=== PATIENT | female | born 1975 | race Caucasian/White ===

== ENCOUNTER 2021-12-26 00:07 | Day surgery (SDC) | payer BC, SELFPAY ==
--- NOTE | 2021-12-20 15:44 | PC.NURSE ---
PLEASE GIVE THIS INSTRUCTION FORM TO PATIENT WHEN PRESENTING FOR PREOP TESTING!!!!!!!!!!!!!!!! Report to the Outpatient Waiting Room, entrance under the green pavilion located off [facility], at time _0600_ on date _12/26/21 . OR Time: __0730 . IF YOUR SURGERY TIME IS ADJUSTED FOR ANY REASON, YOU WILL BE NOTIFIED ON Sunday12/23/21 AFTERNOON - You and your visitor will be asked a series of questions to screen for COVID 19 for your protection. - A mask is required within the hospital. Preoperative COVID Testing Requirements: No COVID Test needed if: (proof is required; if not received patient will have Rapid Test prior to entry) YOU DO NOT REQUIRE COVID TESTING - Patient has received COVID Vaccine at least 14 days prior to procedure date or - Patient has positive COVID test result within last 90 days of surgery date. COVID Test needed if above criteria is not met If not COVID vaccinated a COVID test must be conducted within 72 hours of surgery and patient is asked to isolate self from time of testing until procedure. You will go to the [facility] for your COVID testing. The [facility] site is located at the corner of [address] [facility]. You will only be called if COVID results are positive and your surgeon may reschedule your elective surgery date. Patients may have clear liquids (water, carbonated beverages, clear teas, apple juice) until 3 hours prior to surgery with a maximum of 20 ounces. STOP CLEAR LIQUIDS AT 0430 ON THE MORNING OF SURGERY - No food from midnight until time of surgery - Infants may have breast milk until 4 hours before surgery, formula 6 hours prior to surgery. - Children will be allowed to drink immediately following surgery. If applicable, please bring a bottle or sippy cup to assist with drinking. Juice, water, soda, and popsicles are readily available. For infants on formula, please bring formula the day of surgery. Pacifiers are allowed. Take the following medications with a SIP of water the morning of surgery: __NONE Medications to discontinue per physician N/A Date to take last dose Please no make-up, nail samoan, hairspray, perfume, deodorant, or body powder the day of surgery. No jewelry (including any body piercings) or valuables the day of surgery, leave them at home. Please take a shower or bath the night before, or the morning of, surgery with an antibacterial soap. Wear comfortable, loose fitting clothing. Children are encouraged to wear pajamas. - Jewelry must be removed prior to entering the operating room. Rings and piercings that are not removed may be cut off. - The hospital will not accept responsibility for valuables. - Please leave all valuables, including medications, at home the day of surgery. If you are going home after surgery, a licensed local company hazmat driver must drive you home. - NO public transportation without another adult. - We recommend that an adult stay with you for 24 hours following discharge. - We also recommend that you do not drive, make important decision, drink alcoholic beverages, or take any drugs that were not prescribed by your health care provider for at least 24 hours after your discharge time. For Pediatric surgeries, we recommend two adults accompany the child home (only one inside the building at this time). One visitor will be allowed to accompany the patient into the hospital. Patients visitor will be instructed to remain with patient at all times or leave the building. We will allow the visitor to come back to the postoperative area when patient is ready. Follow any additional instructions given to you from your surgeon. Telephone instructions given to __YONIS and asked if any additional questions and then verbalized understanding. Patient advised to call surgeon office or pre surgery nurse liaison [phone] if
--- NOTE | 2021-12-23 16:12 | WPDANESEPPF ---
Anes - Initial Pre Proc Eval Procedure: Operation Date: 12/26/21 07:30 Proposed Procedures p Bilateral Laparoscopic Tubal Ligation with Fallopian Rings - Shea Calvillo MD Date/Time: 12/23/21 16:12 Surgeon: Shea Calvillo MD Pre Op Diagnosis: desires sterilization Patient Data Age: 46 Gender: F Height: 1.66 m Weight: 66 kg Allergies Allergy/AdvReac Type Severity Reaction Status Date / Time No Known Allergies Allergy Verified 12/26/21 06:17 Home Medications Medication Instructions Recorded Confirmed Type docusate sodium [Colace] 50 mg PO DAILY 12/20/21 12/26/21 History ergocalciferol (vitamin D2) 50,000 unit PO WEEKLY 12/20/21 12/26/21 History [Calciferol] iron,carbonyl-vitamin C [Vitron-C] 1 tablet PO DAILY 12/20/21 12/26/21 History lifitegrast [Xiidra] 1 drp EACH EYE BID 12/20/21 12/26/21 History psyllium husk-calcium [Metamucil 3 cap PO DAILY 12/20/21 12/26/21 History Plus Calcium] valacyclovir 1,000 mg PO PRN PRN 12/20/21 12/26/21 History Patient hx anesthesia problems: none Family hx anesthesia problems: none Results Review: All pre-operative results and documents have been reviewed as part of the pre-operative evaluation. [facility] Social History Social History Alcohol intake: never Substance use: never Substance use type: does not use Living arrangements: with family Spiritual care concerns: No Anes - Eval Final PreProcedure Day of Procedure 12/23/21 16:12 Patient weight: normal Heart: regular rate and rhythm Lungs: clear to auscultation and normal air movement Airway: Mallampati scale class II Neurological: alert and oriented Last oral intake: >/= 8 hours ASA classification: I Emergent: no Anesthetic plan: proceed Anesthesia type and monitoring: general ETT and standard monitoring Results Review: All pre-operative results and documents have been reviewed as part of the pre-operative evaluation. Informed Consent: The patient's anesthetic plan and its attendant risks and benefits were discussed with the patient/family/POA. Questions were solicited and answers provided to the satisfaction of the patient/family/POA.
[2021-12-26] VITALS (11 sets, daily range): BP systolic 108–123; BP diastolic 62–81; PULSE 45–69; RESP 10–20; TEMP 36.3–36.7; O2SAT 95–100
[2021-12-26] MEDS: LACTATED RINGERS 1,000 ML 30 ML IV CONT ×2 (06:30→08:28)
[2021-12-26] MEDS: ACETAMINOPHEN 500 MG TABLET 1000 MG PO (06:34)
[2021-12-26] MEDS: KETOROLAC 15 MG/ML VIAL (*BKC) IV PUSH (06:34)
--- NOTE | 2021-12-26 07:37 | WPDHPUPDATE1 ---
History and Physical Update Update Date/Time: 12/26/21 07:37 History and Physical has been reviewed, including an updated exam of the patient. There are NO changes in the patient's condition. Risks, benefits, and alternatives have been discussed and questions answered. Patient agrees to proceed with procedure.
--- NOTE | 2021-12-26 07:37 | PM.HPGS ---
History of Present Illness History of Present Illness Consent: Risks, benefits, and alternatives have been discussed and questions answered. Patient agrees to proceed with procedure. Chief complaint: desires sterilization Narrative: Viv Ewing is a 46 year old female who has completed her childbearing and requests permanent sterilization. Plan is to proceed with laparoscopic bilateral tubal ligation with Falope rings. Risks of infection, bleeding, injury to internal organs, and failure are reviewed. Patient voices understanding and agrees to proceed. Review of Systems Review of Systems: not repeated day of surgery; patient states no changes in status PMFSH Past Medical History Medical History (Updated 12/26/21 @ 07:40 by Shea Calvillo MD) (normal spontaneous vaginal delivery) X3 Surgical History Surgical History (Updated 12/26/21 @ 07:39 by Shea Calvillo MD) History of carpal tunnel release Hx laparoscopic cholecystectomy Hx of abdominoplasty Social History Social History Alcohol intake: never Substance use: never Substance use type: does not use Living arrangements: with family Spiritual care concerns: No Meds Home Medications and Allergies Home Medications Medication Instructions Recorded Confirmed Type docusate sodium [Colace] 50 mg PO DAILY 12/20/21 12/26/21 History ergocalciferol (vitamin D2) 50,000 unit PO WEEKLY 12/20/21 12/26/21 History [Calciferol] iron,carbonyl-vitamin C [Vitron-C] 1 tablet PO DAILY 12/20/21 12/26/21 History lifitegrast [Xiidra] 1 drp EACH EYE BID 12/20/21 12/26/21 History psyllium husk-calcium [Metamucil 3 cap PO DAILY 12/20/21 12/26/21 History Plus Calcium] valacyclovir 1,000 mg PO PRN PRN 12/20/21 12/26/21 History Allergies Allergy/AdvReac Type Severity Reaction Status Date / Time No Known Allergies Allergy Verified 12/26/21 06:17 Vital Signs Vital Signs - 24 hr 12/26/21 06:05 Temperature 98.1 F Pulse Rate 69 Respiratory Rate 18 Blood Pressure 122/69 Pulse Oximetry 100 Exam Const: General: healthy appearing and alert Orientation/consciousness: patient oriented x3 Resp: Effort & Inspection: normal respiratory effort GI: GI Palp: Yes Soft to palpation, No Tenderness to palpation present (GI) and No Palpable mass present : External Female Exam: normal external appearance Speculum Exam - Vagina: normal appearance of the vagina and normal vaginal discharge Speculum Exam - Cervix: normal appearance of the cervix Bimanual exam- vagina & uterus: uterine size normal and consistency normal Bimanual Exam- Adnexa, other: normal adnexae and No adnexal tenderness Neuro: General: patient oriented x3 Assessment and Plan Assessment and plan (1) Encounter for sterilization: Code(s): Z30.2 - Encounter for sterilization Status: Acute Assessment and Plan: Plan to proceed with laparoscopic bilateral tubal ligation with Falope rings
[2021-12-26] MEDS: ceFAZolin 2 GM/D5W 50 ML 2 GM/50 ML BAG IVPB (07:48)
--- NOTE | 2021-12-26 08:28 | P.OP_ITS ---
Procedure Note - Detailed Date of Procedure 12/26/21 Pre-op Diagnosis desires sterilization Post-op Diagnosis Same Procedure Performed Laparoscopic bilateral tubal ligation with Falope ring Surgeon Shea Calvillo MD Anesthesia General Findings Normal-appearing tubes, ovaries, and uterus. Description of Procedure The patient is taken to the operating room and placed under anesthesia in the dorsal lithotomy position. She was prepped and draped in usual sterile fashion. Bladder was drained with a red rubber catheter. [place] speculum was placed in the vagina and the cervix grasped on the anterior lip with a tenaculum. The acorn manipulator is placed. Vaginal speculum was removed. Attention was turned to the abdomen where a vertical skin incision was made below the cosmetically made umbilicus. The abdomen is tented and entered with Veress need le. Water drop test is normal. Opening patient pressure is 9mmHg. Pneumoperitoneum was obtained patient pressure of 15mmHg. The Veress needle was then removed and the abdomen tented with towel clamps and the 5mm Optiview trocar placed. Intra-abdominal placement was confirmed with the laparoscope. The patient is placed in Trendelenburg. An 8mm skin incision was made 2cm above the symphysis pubis. The 8mm trocars placed under direct visualization. The blunt probe was used to bring the tubes into view. The left tube was grasped with the applicator and a ring was applied. The identical procedure was performed on the opposite side. Picture documentation was taken. Instruments are removed and the pneumoperitoneum reduced. Skin incisions were closed using 4-0 nylon in an interrupted fashion. Vaginal instruments are removed. The patient is awakened from anesthesia and taken to the recovery room in stable condition. Sponge, needle, and instrument counts are correct per the OR staff. Estimated Blood Loss 5 Drains No Packing No Pathology None sent Complications No immediate complications Condition Stable Disposition PACU
[2021-12-26] MEDS: fentaNYL CITRATE INJ (*CRX) 100 MCG/2 ML VIAL 25 MCG IV PUSH ×8 (08:38→10:54)
[2021-12-26] MEDS: ONDANSETRON INJ 4 MG/2 ML VIAL IV PUSH (08:42)
[2021-12-26] MEDS: diphenhydrAMINE HCl INJ 50 MG/ML VIAL 12.5 MG IV PUSH ×2 (09:13→09:56)
[2021-12-26] MEDS: oxyCODONE HCL (*CRX) 5 MG TAB IR PO (09:55)
== END 2021-12-26 11:21 | disposition home or self-care (01) ==
PROVIDERS: Anesthesiology; Visit Provider Obstetrics & Gynecology Gynecology
PROC: (CPT 58671; principal; 2021-12-26 07:30)
DX: Z30.2 Encounter for sterilization (principal)
CPT/HCPCS: 58671; 36415; 85014; 85018; A4264; A9270; J0690; J1200; J1885; J2250; J2405; J2704; J2710; J3010; J7120

== ENCOUNTER 2022-11-23 01:11 | Day surgery (SDC) | payer BC, SELFPAY ==
[2022-11-16 09:22] VITALS: BMI 23.6
--- NOTE | 2022-11-16 09:33 | PC.NURSE ---
Report to the Outpatient Waiting Room, entrance under the green pavilion located off [facility], at time 6:00 on date 11/23/22. Planned Procedure Time: 7:30. Time changes happen often and if your time is changed the preop area will call you the afternoon before. - You and your visitor will be asked to self-screen and do not enter if you have any COVID symptoms. - Only one visitor is requested with a max of two and NO children visitors are allowed at this time. - The patient visitor may be requested to leave or wait in car when not with patient due to distancing restrictions. - A mask is optional within the hospital at this time. Patients may have clear liquids (water, carbonated beverages, clear teas, apple juice) until 3 hours prior to surgery (4:30) with a maximum of 20 ounces. - No food from midnight until time of surgery Take the following medications with a SIP of water the morning of surgery: VALACYCLOVIR IF NEEDED DO NOT STOP ANY OF YOUR OTHER PRESCRIPTION MEDICATIONS PRIOR TO SURGERY EXCEPT THE FOLLOWING Medications to discontinue per physician: VITAMINS/SUPPLEMENTS Date to take last dose: 11/19/22. Please no make-up, nail maltese, hairspray, perfume, deodorant, or body powder the day of surgery. No jewelry (including any body piercings) or valuables the day of surgery, leave them at home. Please take a shower or bath the night before, or the morning of, surgery with an antibacterial soap. Wear comfortable, loose fitting clothing. - Jewelry must be removed prior to entering the operating room. Rings and piercings that are not removed may be cut off. - The hospital will not accept responsibility for valuables. - Please leave all valuables, including medications, at home the day of surgery. If you are going home after surgery, a licensed armored car driver must drive you home. - NO public transportation without another adult if you receive anesthesia. - We recommend that an adult stay with you for 24 hours following discharge. - We also recommend that you do not drive, make important decision, drink alcoholic beverages, or take any drugs that were not prescribed by your health care provider for at least 24 hours after your discharge time. Follow any additional instructions given to you from your surgeon. If you or anyone in your household have experienced Covid symptoms in the past week, please notify your surgeon or the nurse liaison at the phone number below for possible testing. Telephone instructions given to ASHLEE MARTI and asked if any additional questions and then verbalized understanding. Patient advised to call surgeon office or pre surgery nurse liaison [phone] if any additional questions.
--- NOTE | 2022-11-22 12:35 | PM.IMHP ---
H&P: HPI History of Present Illness Date/Time: 11/22/22 12:35 Chief Complaint: Right hallux valgus and toe deformity with pain. Narrative: 47-year-old woman with right toe deformity, forefoot pain and difficulty with shoe wear. Failed conservative treatment with accommodative shoes, custom inserts, activity modification. Presents for operative treatment. Review of Systems Constitutional: Constitutional: Denies fever(s) Eyes: Eyes: Denies blurry vision ENT: Reports Normal hearing present Cardiovascular: Cardiovascular: Denies chest pain and Denies dyspnea Respiratory: Respiratory: Denies dyspnea and Denies wheezing Gastrointestinal: Gastrointestinal: Denies abdominal pain Genitourinary: Genitourinary: Denies urinary urgency Musculoskeletal: Musculoskeletal: Reports as per HPI and Denies numbness Integumentary/Breasts: Skin/Breast: Denies changing lesions and Denies sores Neurologic: Reports Normal hearing present, Denies behavioral changes, Denies confusion, Denies numbness and Denies convulsions Psychiatric: Psychiatric: Denies behavioral changes, Denies confusion and Denies hallucinations Endocrine: Endocrine: Denies heat intolerance Hematologic/Lymphatic: Hematologic/Lymphatic: Denies easy bleeding Allergic/Immunologic: Allergic/Immunologic: Denies wheezing PMFSH Past Medical History Medical History Acquired hallux valgus of left foot Bilateral foot pain Hallux valgus (acquired), right foot Hammertoe of second toe of right foot 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 (normal spontaneous vaginal delivery) X3 Surgical History Surgical History History of carpal tunnel release Hx laparoscopic cholecystectomy Hx of abdominoplasty Social History Social History Smoking status: Never smoker Alcohol intake: current Alcohol use details: VERY RARE Substance use: never Substance use type: does not use Living arrangements: with family Additional living arrangements comments: CHILDREN Spiritual care concerns: No Meds Home Medications and Allergies Home Medications Medication Instructions Recorded Confirmed Type docusate sodium 50 mg capsule 50 mg PO DAILY 12/20/21 11/16/22 History ergocalciferol (vitamin D2) 50,000 50,000 unit PO WEEKLY 12/20/21 11/16/22 History unit tablet iron,carbonyl 65 mg-vitamin C 125 1 tablet PO DAILY 12/20/21 11/16/22 History mg tablet,delayed release (Vitron-C) lifitegrast 5 % eye drops in a 1 drp EACH EYE BID PRN Dry Eyes 12/20/21 11/16/22 History dropperette (Xiidra) psyllium husk-calcium 1 gram-60 mg 3 cap PO DAILY 12/20/21 11/16/22 History capsule (Metamucil Plus Calcium) valacyclovir 1 gram tablet 1,000 mg PO PRN PRN Cold Sores 12/20/21 11/16/22 History multivitamin 1 tablet PO DAILY 11/16/22 11/16/22 History Allergies Allergy/AdvReac Type Severity Reaction Status Date / Time No Known Allergies Allergy Verified 11/16/22 09:20 Exam Const: General: No confusion Orientation/consciousness: No confusion HENMT: Head: normal to inspection, normocephalic and atraumatic Eyes: Conjunctivae: conjunctivae normal Sclera: sclerae normal Neck: Neck: supple and nontender Chest: Chest palpation & inspection: normal inspection of the chest Resp: Effort & Inspection: normal respiratory effort and no audible wheezes Cardio: Rate: regular rate Rhythm: regular rhythm : General: Yes deferred Skin: General skin exam: no rashes or lesions noted Neuro: General: No confusion Extrem: General: capillary refill normal Right upper extremity: normal to inspection Left upper extremity: normal to inspection Right lower extremity: normal to inspection, hip/thigh Details: normal to inspection, knee Details: normal ROM and knee ligament exam normal, ankle
--- NOTE | 2022-11-22 13:45 | WPDANESEPPF ---
Anes - Initial Pre Proc Eval Procedure: Operation Date: 11/23/22 07:30 Proposed Procedures p Right Hallux Valgus Correction with Double Osteotomy, Right Second Crossover Toe Reconstruction with Metatarsal Osteotomy, Proximal Interphalangeal Arthrodesis - Jamshid Agustin MD Date/Time: 11/22/22 13:45 Surgeon: Jamshid Agustin MD Pre Op Diagnosis: right hallux valgus, rt 2nd crossover toe,hammer t Patient Data Age: 47 Gender: F Height: 1.66 m Weight: 65.32 kg Allergies Allergy/AdvReac Type Severity Reaction Status Date / Time No Known Allergies Allergy Verified 11/23/22 07:06 Home Medications Medication Instructions Recorded Confirmed Type docusate sodium 50 mg capsule 50 mg PO DAILY 12/20/21 11/16/22 History ergocalciferol (vitamin D2) 50,000 50,000 unit PO WEEKLY 12/20/21 11/16/22 History unit tablet iron,carbonyl 65 mg-vitamin C 125 1 tablet PO DAILY 12/20/21 11/16/22 History mg tablet,delayed release (Vitron-C) lifitegrast 5 % eye drops in a 1 drp EACH EYE BID PRN Dry Eyes 12/20/21 11/16/22 History dropperette (Xiidra) psyllium husk-calcium 1 gram-60 mg 3 cap PO DAILY 12/20/21 11/16/22 History capsule (Metamucil Plus Calcium) valacyclovir 1 gram tablet 1,000 mg PO PRN PRN Cold Sores 12/20/21 11/16/22 History multivitamin 1 tablet PO DAILY 11/16/22 11/16/22 History Patient hx anesthesia problems: none Family hx anesthesia problems: none Results Review: All pre-operative results and documents have been reviewed as part of the pre-operative evaluation. 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 (normal spontaneous vaginal delivery) X3 Surgical History Surgical History History of carpal tunnel release Hx laparoscopic cholecystectomy Hx of abdominoplasty Social History Social History Smoking status: Never smoker Alcohol intake: current Alcohol use details: VERY RARE Substance use: never Substance use type: does not use Living arrangements: with family Additional living arrangements comments: CHILDREN Spiritual care concerns: No Anes - Eval Final PreProcedure Day of Procedure 11/22/22 13:45 Patient weight: normal Heart: regular rate and rhythm Lungs: clear to auscultation Airway: Mallampati scale class II Neurological: alert and oriented Last oral intake: >/= 8 hours ASA classification: II Emergent: no Anesthetic plan: proceed Anesthesia type and monitoring: general LMA and standard monitoring Results Review: All pre-operative results and documents have been reviewed as part of the pre-operative evaluation. Informed Consent: The patient's anesthetic plan and its attendant risks and benefits were discussed with the patient/family/POA. Questions were solicited and answers provided to the satisfaction of the patient/family/POA.
[2022-11-23] VITALS (14 sets, daily range): BP systolic 105–129; BP diastolic 59–77; PULSE 54–73; RESP 10–14; TEMP 36.1–37.4; O2SAT 95–100
--- NOTE | ~2022-11-23 | XR_ITS ---
EXAMINATION: XR surgery orthopedic DATE: 11/23/2022 09:56 INDICATION: Right-sided hallux valgus. TECHNIQUE: 4 intraoperative fluoroscopic views of right foot were obtained. I was not present. Fluoro scopy exposure time was 16 seconds. COMPARISON: Right foot radiographs 10/17/2022 FINDINGS: There are changes of bunionectomy. There is osteotomy of first proximal phalanx with staple fixation. There is an osteotomy of head of second metatarsal with fixation with 2 screws. There is a n arthrodesis procedure at second proximal interphalangeal joint. IMPRESSION: 1. Surgical changes of right foot. Reviewed, dictated and finalized at location A. ETING OPERATIONS MANAGER
[2022-11-23] MEDS: KETOROLAC 15 MG/ML VIAL (*BKC) IV PUSH (07:00)
[2022-11-23] MEDS: ACETAMINOPHEN 500 MG TABLET 1000 MG PO (07:00)
[2022-11-23] MEDS: LACTATED RINGERS 1,000 ML 30 ML IV CONT ×2 (07:00→10:08)
[2022-11-23] MEDS: SCOPOLAMINE 1.5 MG PATCH TRANSDERM (07:05)
--- NOTE | 2022-11-23 07:13 | WPDHPUPDATE1 ---
History and Physical Update Update Date/Time: 11/23/22 07:13 History and Physical has been reviewed, including an updated exam of the patient. There are NO changes in the patient's condition. Risks, benefits, and alternatives have been discussed and questions answered. Patient agrees to proceed with procedure.
[2022-11-23 07:19] LABS: Beta HCG Quantitative < 2.39 mIU/ML
[2022-11-23] MEDS: ceFAZolin 2 GM/D5W 50 ML 2 GM/50 ML BAG IVPB (07:30)
[2022-11-23] MEDS: BUPivacaine HCL 0.5% 10 ML AMP 20 ML INFILTRATE (08:38)
--- NOTE | 2022-11-23 10:15 | W.PM.PROC2 ---
Procedure Note - Detailed Date of Procedure 11/23/22 Pre-op Diagnosis right hallux valgus, rt 2nd crossover toe,hammer toe Post-op Diagnosis Same Procedure Performed Right hallux valgus correction with double osteotomy, 2nd crossover toe repair with soft tissue reconstruction, 2nd metatarsal osteotomy, hammertoe repair. Surgeon Jamshid Agustin MD Senior Professional Services Consultant assistant professor of forestry Anesthesia General Indications 47-year-old woman with hallux valgus deformity as well 2nd crossover toe deformity with hammertoe. There is dislocation of the hallux metatarsophalangeal joint relatively long 2nd metatarsal plantar exostosis. Description of Procedure After informed consent was given, the operative extremity was marked in the preoperative holding area. The patient received intravenous antibiotics. The patient was brought to the operating room where they underwent a general anesthetic by the anesthesia team. The patient was positioned supine on the operating room table. A time-out was performed confirming the patient, site of the surgery, and the plan for surgery. The right lower extremity was then prepped and draped in the usual sterile surgical fashion using ChloraPrep skin solution. Foot and ankle were exsanguinated and a calf tourniquet was inflated to 225 mmHg pressure. A longitudinal incision was then made along the medial border of the 1st ray centered over the medial eminence with a #15 blade knife. The previous incision was utilized. Hemostasis was controlled with electric cautery. The dorsal and plantar sensory nerves were identified and retracted bluntly. A medial capsulotomy was then performed. This was reflected off the medial eminence. The joint was inspected for evaluation of degenerative changes. A lateral release was then performed through the joint with a #15 blade knife. The medial eminence was then resected with a sagittal saw in line with the medial border of the foot. Correction of the deformity was performed with a chevron-shaped osteotomy performed with sagittal saw from medial to lateral through the distal portion of the 1st metatarsal. The lateral portion of the bone cut was completed with an osteotome to protect the soft tissue. The capital fragment was then translated laterally and impacted on to the 1st metatarsal shaft. Lateral translation and impaction corrected both hallux valgus deformity and correction of the distal metatarsal articular angle. Temporary fixation was performed and alignment was verified with image intensification. Hallux valgus angle correction, intermetatarsal angle correction and distal metatarsal articular angle were verified. Fixation was achieved with 2.0 millimeter bioabsorbable pins. Two pins were utilized. Image intensification confirmed final alignment. Rotation was verified visually. The wound was then thoroughly irrigated with antibiotic solution. The capsule was repaired through a drill hole in the distal 1st metatarsal with 0 Vicryl interrupted suture. The dorsal limb of the capsule was repaired with 00 Vicryl interrupted suture. Subcutaneous tissue was repaired with 000 Monocryl interrupted suture and the skin approximated with 0000 nylon running suture. Local anesthetic with 0.5% Marcaine plain was injected in the soft tissue. Clinically and fluoroscopically there was still hallux valgus interphalangeus present. Proximal phalanx osteotomy was indicated. Medial incision made along the proximal phalanx with 15 blade knife. Hemostasis controlled electrocautery. Dissection down to the medial aspect of the proximal phalanx. Retractors placed. Sagittal saw used to make a medial closing wedge osteotomy transversely across the proximal phalanx. Image intensification confirmed placement of the osteotomy. Fixation was achieved with the Arthrex 9 millimeter x 9 millimeter staple. Good stability and fixation were noted. Image intensification confirmed final alignment of the osteotomy and placement of the hardware
[2022-11-23] MEDS: ONDANSETRON INJ 4 MG/2 ML VIAL IV PUSH (10:19)
--- NOTE | 2022-11-23 10:32 | SUR.PHASEI ---
NOTIFIED DR. CHAVEZ THAT PATIENT REMAINS NAUSEOUS AFTER ADMINISTRATION OF ZOFRAN IN RECOVERY. PATIENT REFUSING BENADRYL OR HALDOL
[2022-11-23] MEDS: PROMETHAZINE HCL 25 MG/ML AMPUL 12.5 MG IV PUSH (10:42)
[2022-11-23] MEDS: oxyCODONE HCL (*CRX) 5 MG TAB IR PO (14:03)
== END 2022-11-23 14:05 | disposition home or self-care (01) ==
PROVIDERS: Anesthesiology; Visit Provider Orthopaedic Surgery
PROC: (CPT 28750; principal; 2022-11-23 07:30)
DX: M20.11 Hallux valgus (acquired), right foot (principal); M20.41 Other hammer toe(s) (acquired), right foot; M20.5X1 Other deformities of toe(s) (acquired), right foot
CPT/HCPCS: 28299; 28285; 28312; 36415; 84702; 99199; A9270; C1713; J0690; J1100; J1885; J2250; J2405; J2550; J2704; J3010; J7120

== ENCOUNTER 2023-01-04 00:22 | Day surgery (SDC) | payer BC, SELFPAY ==
[2022-12-22 09:19] VITALS: BMI 23.1
--- NOTE | 2022-12-22 09:23 | PC.NURSE ---
Report to the Outpatient Waiting Room, entrance under the green pavilion located off [facility], at time 0800 on date 01/04/23. Planned Procedure Time: 1000. Time changes happen often and if your time is changed the preop area will call you the afternoon before. - You and your visitor will be asked to self-screen and do not enter if you have any COVID symptoms. - Only one visitor is requested with a max of two and NO children visitors are allowed at this time. - The patient visitor may be requested to leave or wait in car when not with patient due to distancing restrictions. - A mask is optional within the hospital at this time. Patients may have clear liquids (water, carbonated beverages, clear teas, apple juice) until 3 hours prior to surgery with a maximum of 20 ounces. - No food from midnight until time of surgery Take the following medications with a SIP of water the morning of surgery: VALACYCLOVIR IF NEEDED, EYE DROPS DO NOT STOP ANY OF YOUR OTHER PRESCRIPTION MEDICATIONS PRIOR TO SURGERY EXCEPT THE FOLLOWING Medications to discontinue per physician: VITAMINS/SUPPLEMENTS Date to take last dose: 12/31/22 LAST DOSE OF IBUPROFEN 12/27/22 Please no make-up, nail niuean, hairspray, perfume, deodorant, or body powder the day of surgery. No jewelry (including any body piercings) or valuables the day of surgery, leave them at home. Please take a shower or bath the night before, or the morning of, surgery with an antibacterial soap. Wear comfortable, loose fitting clothing. - Jewelry must be removed prior to entering the operating room. Rings and piercings that are not removed may be cut off. - The hospital will not accept responsibility for valuables. - Please leave all valuables, including medications, at home the day of surgery. If you are going home after surgery, a licensed automation driver must drive you home. - NO public transportation without another adult if you receive anesthesia. - We recommend that an adult stay with you for 24 hours following discharge. - We also recommend that you do not drive, make important decision, drink alcoholic beverages, or take any drugs that were not prescribed by your health care provider for at least 24 hours after your discharge time. Follow any additional instructions given to you from your surgeon. If you or anyone in your household have experienced Covid symptoms in the past week, please notify your surgeon or the nurse liaison at the phone number below for possible testing. Telephone instructions given to ASHLEE MARTI and asked if any additional questions and then verbalized understanding. Patient advised to call surgeon office or pre surgery nurse liaison [phone] if any additional questions.
[2023-01-04] VITALS (10 sets, daily range): BP systolic 108–130; BP diastolic 60–81; PULSE 53–66; RESP 9–16; TEMP 36.7–36.8; O2SAT 100
--- NOTE | ~2023-01-04 | XR_ITS ---
EXAMINATION: XR surgery orthopedic DATE: 01/04/2023 11:18 INDICATION: Left hallux valgus correction and second metatarsal osteotomy TECHNIQUE: 4 fluoroscopic images of the left forefoot were obtained during procedure performed by Dr. Agustin. Radiologist was not present for the imaging or procedure. The amount of fluoroscopy time us ed during this procedure was 0.2 minutes. COMPARISON: 10/17/2022 FINDINGS: Osteotomies for bunionectomy at the medial aspect of the head and for realignment at the neck of the left first metatarsal. Additional likely closing wedge osteotomy at the medial base of the first prox imal phalanx with medial sided staple fixation. Finally there is shortening osteotomy at the neck of the second metatarsal which is fixed with a pair of screws. Alignment appears near-anatomic with norm al axis along the first ray. No fractures. Expected small amount of soft tissue gas at the operative beds. IMPRESSION: 1. Expected appearance post orthopedic procedure at the left forefoot as detailed above. See procedur e note for further detail. Reviewed, dictated and finalized at location A. IMPRESSION: 1. Expected appearance post orthopedic procedure at the left forefoot as detail ed above. See procedure note for further detail.
--- NOTE | 2023-01-04 08:42 | WPDHPUPDATE1 ---
History and Physical Update Update Date/Time: 01/04/23 08:42 History and Physical has been reviewed, including an updated exam of the patient. There are NO changes in the patient's condition. Risks, benefits, and alternatives have been discussed and questions answered. Patient agrees to proceed with procedure.
--- NOTE | 2023-01-04 08:53 | WPDANESEPPF ---
Anes - Initial Pre Proc Eval Procedure: Operation Date: 01/04/23 10:00 Proposed Procedures p Left Hallux Valgus Correction, - Jamshid Agustin MD s Second Metatarsal Osteotomy and Release Baxter's Neuroma Left Foot - Jamshid Agustin MD Date/Time: 01/04/23 08:53 Surgeon: Jamshid Agustin MD Pre Op Diagnosis: left hallux valgus,left mortons neuroma Patient Data Age: 47 Gender: F Height: 1.68 m Weight: 65 kg Allergies Allergy/AdvReac Type Severity Reaction Status Date / Time No Known Allergies Allergy Verified 01/04/23 08:25 Home Medications Medication Instructions Recorded Confirmed Type docusate sodium 50 mg capsule 50 mg PO DAILY 12/20/21 12/12/22 History ergocalciferol (vitamin D2) 50,000 50,000 unit PO WEEKLY 12/20/21 12/12/22 History unit tablet iron,carbonyl 65 mg-vitamin C 125 1 tablet PO DAILY 12/20/21 12/22/22 History mg tablet,delayed release (Vitron-C) lifitegrast 5 % eye drops in a 1 drp EACH EYE BID PRN Dry Eyes 12/20/21 12/22/22 History dropperette (Xiidra) psyllium husk-calcium 1 gram-60 mg 3 cap PO DAILY 12/20/21 12/22/22 History capsule (Metamucil Plus Calcium) valacyclovir 1 gram tablet 1,000 mg PO PRN PRN Cold Sores 12/20/21 12/22/22 History multivitamin 1 tablet PO DAILY 11/16/22 12/22/22 History ibuprofen 800 mg tablet 800 mg PO TID PRN pain #30 tabs 11/23/22 12/22/22 Rx sennosides 8.6 mg-docusate sodium 1 tab-cap PO BID PRN constipation 11/23/22 12/22/22 Rx 50 mg tablet (Senna with Docusate #20 tabs Sodium) amoxicillin 500 mg capsule 500 mg PO ONCE #4 caps 12/05/22 12/12/22 Rx Patient hx anesthesia problems: none Family hx anesthesia problems: none Results Review: All pre-operative results and documents have been reviewed as part of the pre-operative evaluation. 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 (normal spontaneous vaginal delivery) X3 Surgical History Surgical History History of carpal tunnel release Hx laparoscopic cholecystectomy Hx of abdominoplasty Family History Family History Other Hypertension Social History Social History Smoking status: Never smoker Alcohol intake: current Alcohol use details: VERY RARE Substance use: never Substance use type: does not use Living arrangements: with family Additional living arrangements comments: CHILDREN Spiritual care concerns: No Anes - Eval Final PreProcedure Day of Procedure 01/04/23 08:53 Patient weight: normal Heart: regular rate and rhythm Lungs: clear to auscultation Airway: Mallampati scale class 1 Neurological: alert and oriented Last oral intake: >/= 8 hours ASA classification: II Emergent: no Anesthetic plan: proceed Anesthesia type and monitoring: general LMA and standard monitoring Results Review: All pre-operative results and documents have been reviewed as part of the pre-operative evaluation. Informed Consent: The patient's anesthetic plan and its attendant risks and benefits were discussed with the patient/family/POA. Questions were solicited and answers provided to the satisfaction of the patient/family/POA.
[2023-01-04] MEDS: LACTATED RINGERS 1,000 ML 30 ML IV CONT ×2 (09:16→11:21)
[2023-01-04] MEDS: KETOROLAC 15 MG/ML VIAL (*BKC) IV PUSH (09:32)
[2023-01-04] MEDS: SCOPOLAMINE 1.5 MG PATCH TRANSDERM (09:32)
[2023-01-04] MEDS: ACETAMINOPHEN 500 MG TABLET 1000 MG PO (09:32)
[2023-01-04] MEDS: ceFAZolin 2 GM/D5W 50 ML 2 GM/50 ML BAG IVPB (09:34)
[2023-01-04] MEDS: BUPivacaine HCL 0.5% 10 ML AMP 20 ML INFILTRATE (10:06)
--- NOTE | 2023-01-04 11:54 | W.PM.PROC2 ---
Procedure Note - Detailed Date of Procedure 01/04/23 Pre-op Diagnosis left hallux valgus,left mortons neuroma , 2nd crossover toe Post-op Diagnosis Same Procedure Performed left hallux valgus correction with double osteotomy, 2nd crossover toe repair with metatarsal osteotomy. Surgeon Jamshid Agustin MD Etcher Apprentice [employer] automotive service assistant Anesthesia General Indications 47-year-old woman left hallux valgus and 2nd toe deformity as well as 2nd intermetatarsal space neuroma. Failed conservative treatment. Pain with activity and presents now for operative treatment. Description of Procedure After informed consent was given, the operative extremity was marked in the preoperative holding area. The patient received intravenous antibiotics. The patient was brought to the operating room where they underwent a general anesthetic by the anesthesia team. The patient was positioned supine on the operating room table. A time-out was performed confirming the patient, site of the surgery, and the plan for surgery. The Left lower extremity was then prepped and draped in the usual sterile surgical fashion using ChloraPrep skin solution. Foot and ankle were exsanguinated and a calf tourniquet was inflated to 225 mmHg pressure. A longitudinal incision was then made along the medial border of the 1st ray centered over the medial eminence with a #15 blade knife. The previous incision was utilized. Hemostasis was controlled with electric cautery. The dorsal and plantar sensory nerves were identified and retracted bluntly. A medial capsulotomy was then performed. This was reflected off the medial eminence. The joint was inspected for evaluation of degenerative changes. A lateral release was then performed through the joint with a #15 blade knife. The medial eminence was then resected with a sagittal saw in line with the medial border of the foot. Correction of the deformity was performed with a chevron-shaped osteotomy performed with sagittal saw from medial to lateral through the distal portion of the 1st metatarsal. The lateral portion of the bone cut was completed with an osteotome to protect the soft tissue. The capital fragment was then translated laterally and impacted on to the 1st metatarsal shaft. Lateral translation and impaction corrected both hallux valgus deformity and correction of the distal metatarsal articular angle. Temporary fixation was performed and alignment was verified with image intensification. Hallux valgus angle correction, intermetatarsal angle correction and distal metatarsal articular angle were verified. Fixation was achieved with 2.0 millimeter bioabsorbable pins. Two pins were utilized. Image intensification confirmed final alignment. Rotation was verified visually. The wound was then thoroughly irrigated with antibiotic solution. The capsule was repaired through a drill hole in the distal 1st metatarsal with 0 Vicryl interrupted suture. The dorsal limb of the capsule was repaired with 00 Vicryl interrupted suture. Subcutaneous tissue was repaired with 000 Monocryl interrupted suture and the skin approximated with 0000 nylon running suture. Local anesthetic with 0.5% Marcaine plain was injected in the soft tissue. Clinically and fluoroscopically there was still hallux valgus interphalangeus present. Proximal phalanx osteotomy was indicated. Medial incision made along the proximal phalanx with 15 blade knife. Hemostasis controlled electrocautery. Dissection down to the medial aspect of the proximal phalanx. Retractors placed. Sagittal saw used to make a medial closing wedge osteotomy transversely across the proximal phalanx. Image intensification confirmed placement of the osteotomy. Fixation was achieved with the Arthrex 10 millimeter x 9 millimeter staple. Good stability and fixation were noted. Image intensification confirmed final alignment of the osteotomy and placement of the hardware. Overall alignment of the 1st ray was verified. Wou
== END 2023-01-04 13:50 | disposition home or self-care (01) ==
PROVIDERS: Visit Provider Orthopaedic Surgery
PROC: (CPT 28299; principal; 2023-01-04 10:00)
PROC: (CPT 28750; 2023-01-04 10:00)
DX: M20.12 Hallux valgus (acquired), left foot (principal); M20.5X2 Other deformities of toe(s) (acquired), left foot; G57.62 Lesion of plantar nerve, left lower limb
CPT/HCPCS: 28299; 28308; 99199; A9270; C1713; J0690; J1100; J1885; J2250; J2370; J2405; J2704; J3010; J7120